=== PATIENT | female | born 1990 | race Caucasian/White ===

== ENCOUNTER → 2020-04-16 11:48 | Outpatient (CLI) | payer OTHER, SELFPAY ==
[2020-04-19 07:28] LABS: Neisseria gonorrhoeae, NAA Negative (Negative)
== END ==
PROVIDERS: Visit Provider Obstetrics & Gynecology
DX: N89.8 Other specified noninflammatory disorders of vagina (principal)
CPT/HCPCS: 87491; 87591

== ENCOUNTER → 2021-03-18 12:16 | Outpatient (CLI) | payer OTHER, SELFPAY ==
[2021-03-18 12:50] LABS: D-Dimer 0.47 ug/mL (0.0-0.5)
[2021-03-18 13:48] LABS: T4 (Thyroxine) 9.5 ug/dl (5.53-11.0)
[2021-03-18 14:01] LABS: Thyroid Stimulating Hormone 2.43 uIU/mL (0.465-4.68)
== END ==
PROVIDERS: Visit Provider Internal Medicine Adolescent Medicine
DX: R07.89 Other chest pain (principal)
CPT/HCPCS: 36415; 84436; 84443; 85378

== ENCOUNTER 2021-03-19 19:36 | Emergency (ER) | payer OTHER, SELFPAY ==
[2021-03-19 19:37] VITALS: BP 145/89; PULSE 88; RESP 16; TEMP 37.1; O2SAT 100; BMI 23.6
--- NOTE | 2021-03-19 19:42 | ECG_ITS ---
APPROVED REPORT Exam: Resting ECG HR:79 bpm ECG Measurements Heart Rate 79 AXES WV 116 P 60 QRSd 94 QRS 72 QT 388 T 50 QTc 444 Conclusion Normal sinus rhythm Normal ECG Electronically signed by : Terell Hylton MD 03/20/2021 14:25:54
--- NOTE | 2021-03-19 19:59 | XR_ITS ---
PROCEDURE INFORMATION: Exam: XR Chest Exam date and time: 03/19/2021 7:59 PM Age: 30 years old Clinical indication: Sternal or substernal pain; Patient HX: Substernal chest pressure, patient had covid summer. ; Additional info: Chest pain TECHNIQUE: Imaging protocol: XR of the chest. Views: 2 views. COMPARISON: No relevant prior studies available. FINDINGS: Lungs: Unremarkable. No consolidation. Pleural spaces: Unremarkable. No pleural effusion. No pneumothorax. Heart/Mediastinum: Unremarkable. No cardiomegaly. Bones/joints: Mild scoliosis. IMPRESSION: No acute findings.
[2021-03-19 20:08] LABS: Basophils # 0.1 K/mm3 (0-0.2); Basophils % 1.2 % (0.1-2.0); Eosinophils # 0.5 K/mm3 (0.0-0.4); Eosinophils % 7.3 % (0.1-12.0); Hematocrit 41.7 % (37.0-47.0); Hemoglobin 13.4 g/dL (12.2-16.2); Lymphocytes # 2.6 K/mm3 (0.7-4.5); Lymphocytes % 37.8 % (10-50); Mean Corpuscular HGB Conc 32.2 g/dL (31.8-35.4); Mean Corpuscular Hemoglobin 30.4 pg (27.0-31.2); Mean Corpuscular Volume 94.4 fl (81-99); Mean Platelet Volume 8.7 fl (7.4-10.4); Monocytes # 0.3 K/mm3 (0.1-1.0); Monocytes % 4.6 % (1.7-9.3); Neutrophils # 3.3 K/mm3 (1.8-7.8); Neutrophils % 49.2 % (37.0-80.0); Platelet Count 282 K/mm3 (142-424); Red Blood Count 4.42 M/mm3 (4.20-5.40); Red Cell Distribution Width 13.7 % (11.5-17.5); White Blood Count 6.8 K/mm3 (4.8-10.8)
[2021-03-19 20:17] LABS: HCG Qualitative, Serum Negative (Negative)
[2021-03-19 20:21] LABS: Alanine Aminotransferase 14 U/L (12-78); Albumin Level 5.1 g/dl (3.5-5.0); Alkaline Phosphatase 54 U/L (38-126); Amylase 94 U/L (30-110); Anion Gap 14.5 mEq/L (5-15); Aspartate Amino Transferase 24 U/L (14-36); Bilirubin,Direct 0.3 mg/dl (0.0-0.4); Bilirubin,Total 0.3 mg/dl (0.2-1.3); Blood Urea Nitrogen 19 mg/dl (7-17); Calcium 9.9 mg/dl (8.4-10.2); Carbon Dioxide 27 mmol/L (22.0-30.0); Chloride 104 mmol/L (98-107); Creatinine Clearance Estimated 127 mL/min (50-200); Estimated Glomerular Filt Rate 98 ml/min (>60); GFR (African American) 119 ML/MIN (>60); Glucose 101 mg/dl (74-100); Lipase 92 U/L (23-300); Potassium 4.5 mmoL/L (3.5-5.1); Sodium 141 mmol/L (136-145); Total Protein,Serum 8.4 g/dl (6.3-8.2)
--- NOTE | 2021-03-19 20:21 | HMH.EDCP ---
ED Disposition Clinical Impression: Atypical chest pain Disposition: Home, Self-Care Condition on Discharge: Good Instructions: DI for Atypical Chest Pain Additional Instructions: see pcp for follow up Referrals: Terell Hylton MD [Primary Care Provider] - - Critical Care Critical Care Time: No Attestation: On 03/19/21, the high probability of a clinically significant, sudden or life threatening deterioration of the following system(s) required my full and direct attention, intervention and personal management. The time I documented below is in addition to time spent performing reported procedures but includes the following listed in this critical care notation. Medical Decision Making - Medical Records Medical records reviewed: Yes: I reviewed the patient's medical records. - Reji Inquiry Pt receiving controlled substance: No Vital Signs: 03/19/21 19:37 Temperature 98.7 F Temperature Source Oral Pulse Rate [Left] 88 Respiratory Rate 16 Blood Pressure [Right Arm] 145/89 H Blood Pressure Mean [Right Arm] 107 02 Sat by Pulse Oximetry 100 Oxygen Delivery Method Room Air - Lab Data Lab results reviewed: Yes: I reviewed the patient's lab results. Lab Results 03/19/21 19:40: WBC 6.8, RBC 4.42, Hgb 13.4, Hct 41.7, MCV 94.4, MCH 30.4, MCHC 32.2, RDW 13.7, Plt Count 282, MPV 8.7, Neut % (Auto) 49.2, Lymph % (Auto) 37.8, [place] % (Auto) 4.6, Eos % (Auto) 7.3, Baso % (Auto) 1.2, Neut # (Auto) 3.3, Lymph # (Auto) 2.6, [place] # (Auto) 0.3, Eos # (Auto) 0.5 H, Baso # (Auto) 0.1, ESR 7 03/19/21 19:40: Sodium 141, Potassium 4.5, Chloride 104, Carbon Dioxide 27, Anion Gap 14.5, BUN 19 H, Creatinine 0.70, Estimated Creat Clear 127, Estimated GFR 98, Est GFR ( Amer) 119, Glucose 101 H, Calcium 9.9, Total Bilirubin 0.3, Direct Bilirubin 0.3, Conjugated Bilirubin 0.0, Indirect Bilirubin 0.0, Unconjugated Bilirubin 0.0, AST 24, ALT 14, Alkaline Phosphatase 54, Troponin I < 0.01, C-Reactive Protein < 0.3, Total Protein 8.4 H, Albumin 5.1 H, Amylase 94, Lipase 92, Procalcitonin 0.032 03/19/21 19:40: Serum HCG, Qual Negative Result diagrams: 03/19/21 19:40 03/19/21 19:40 Orders (Tests/Meds): ED MEDICATIONS Generic Name Dose Route Start Last Admin Trade Name Freq PRN Reason Stop Dose Admin Sodium Chloride 1,000 mls @ 999 mls/hr 03/19/21 20:15 03/19/21 20:18 Sod Chlor 0.9% 1000ml Bag IV 03/19/21 21:15 999 mls/hr .Q1H1M JASBIR Administration Discontinued Medications Generic Name Dose Route Start Last Admin Trade Name Freq PRN Reason Stop Dose Admin Aspirin 324 mg 03/19/21 20:03 03/19/21 20:07 Aspirin 81mg Chewable Tablet PO 03/19/21 20:04 324 mg ONCE ONE Administration Famotidine 20 mg 03/19/21 20:13 03/19/21 20:18 Famotidine 20mg/2ml Vial IV 03/19/21 20:14 20 mg ONCE ONE Administration Ketorolac Tromethamine 30 mg 03/19/21 21:05 03/19/21 21:06 Ketorolac 30mg/Ml Vial IV 03/19/21 21:06 30 mg ONCE ONE Administration Metoclopramide HCl 10 mg 03/19/21 20:13 03/19/21 20:18 Metoclopramide Hcl 10mg/2ml Vial IVP 03/19/21 20:14 10 mg ONCE ONE Administration ORDERS Category Date Time Status Troponin I Q3H Lab 03/19/21 23:15 Ordered Troponin I Q3H Lab 03/20/21 02:15 Ordered - Radiology Data #1 Image(s): Chest Image Reviewed: Yes I reviewed the patient's radiology image, Yes I have reviewed radiologist's interpretation Preliminary Findings: Normal/NAD - ECG Data Tracing #1 Normal Sinus Rhythm: Yes Ischemic changes: non-specific ST-T wave changes Medical Decision Narrative: stable exam and labs and will f/u as op Chest Pain HPI - General Chief Complaint: Chest Pain Stated Complaint: chest pain Time Seen by Provider: 03/19/21 20:00 Mode of Arrival: Ambulatory Source of Information: Patient, Medical Record Limitations: No Limitations Description of Symptoms (Recalled from ER Triage Doc. by RN): chest pressure - Histor
[2021-03-19 20:40] LABS: Procalcitonin 0.032 ng/mL (0.0-2.0)
[2021-03-19 20:41] LABS: Erythrocyte Sedimentation Rate 7 mm/hr (0-20)
[2021-03-19 20:51] LABS: C-Reactive Protein < 0.3 mg/L (0-4); Troponin I < 0.01 ng/ml (0.00-0.034)
[2021-03-19 21:21] VITALS: BP 97/57; PULSE 78; RESP 16; TEMP 37.1
== END 2021-03-19 21:31 | disposition home or self-care (01) ==
PROVIDERS: Emergency Provider Emergency Medicine; PCP Internal Medicine Adolescent Medicine
DX: R07.89 Other chest pain (principal); R10.13 Epigastric pain; Z88.2 Allergy status to sulfonamides
CPT/HCPCS: 71046; 80048; 80076; 82150; 83690; 84145; 84484; 84703; 85025; 85651; 86140; 93005; 99283

== ENCOUNTER → 2021-03-27 10:01 | Outpatient (CLI) | payer OTHER, SELFPAY ==
--- NOTE | 2021-03-27 | CA_ITS ---
APPROVED REPORT Exam: Exercise Treadmill Technologist: Ashley Wan, Ht: 5 ft 7 in Wt: 155 lbs BSA: 1.81 m2 HR: 73 bpm BP: 121/80 mmHg Medical History Medications: Omeprazole,,,,, WELLBUTRIN,,,,, Regine,,,,, Stress Test Details Test: Ab HR Resting HR: 109 bpm Max Heart Rate (APMHR): 190.327440 bpm Max HR Achieved: 171 bpm Target HR (85% APMHR): 161.374044 bpm % of APMHR: 90.00 Recovery HR: 102 bpm BP Resting BP: 134/79 mmHg Max BP: 179/88 mmHg Recovery BP: 135.0/71.0 mmHg ECG Clinical Reason for Termination: Dyspnea Exercise duration: 12:01 min Highest Stage Achieved: Exercise capacity: 12.8 METs Stress ECG Conclusion Walked 12:00 Minute Max HR: 171 % of PM: 105 MET's: 12.8 Test stopped due to: SOA Symptoms: No CP Arrhythmias/Ectopy: None ST-T Changes: <1.5mm ST Segment changes Conclusion: Negative stress. See Echo report. Test Summary REST . . . . . . . Sitting REST . . . . . . . Standing REST 08:49 0.0 1.2 109 . 134/ 79 . . Stage 1 01:00 10.0 1.7 122 . . . . Stage 1 02:00 10.0 1.7 128 . . . . Stage 1 03:00 10.0 1.7 124 . . . . Stage 2 01:00 12.0 2.5 126 . . . . Stage 2 02:00 12.0 2.5 138 . . . . Stage 2 03:00 12.0 2.5 136 . 170/ 90 . . Stage 3 01:00 14.0 3.4 154 . . . . Stage 3 02:00 14.0 3.4 156 . . . . Stage 3 03:00 14.0 3.4 156 . 179/ 88 . . Stage 4 01:00 16.0 4.2 168 . . . . Stage 4 02:00 16.0 4.2 169 . . . . Stage 4 03:00 16.0 4.2 171 . . . . Stage 5 00:01 18.0 5.0 171 . . . Stop exercise at 12:01 RECOVERY 01:00 0.0 0.0 136 . . . . RECOVERY 02:00 0.0 0.0 119 . . . . RECOVERY 03:00 0.0 0.0 112 . . . . RECOVERY 04:00 0.0 0.0 101 . 159/ 77 . . RECOVERY 05:00 0.0 0.0 102 . 159/ 77 . . RECOVERY 06:00 0.0 0.0 115 . 135/ 71 . . RECOVERY 07:00 0.0 0.0 106 . 135/ 71 . . RECOVERY 07:45 0.0 0.0 0 . 135/ 71 . . Electronically signed by : Seng Hendrix MD 03/27/2021 13:11:39
--- NOTE | 2021-03-27 10:10 | CA_ITS ---
APPROVED REPORT EXAM: Limited 2D Echocardiogram Seat Installer: Ginger Castillo RVT Ht: 5 ft 7 in Wt: 155lbs BSA: 1.81 BP: 123/67 mmHg Indications: PALPS,HX COVID,CHEST PRESSURE Stress Test Details HR Max Heart Rate (APMHR): 190.043020 bpm Target HR (85% APMHR): 161.369045 bpm BP ECG Conclusion 1. The patient exercised on Ab protocol and achieved 12.8 mets of workload on treadmill the blood pressure response to exercise was adequate, there is no exercise-induced chest discomfort. The EKG was negative for ischemia with exercise. 2. No echocardiographic evidence of segmental wall motion abnormality with exercise to suggest underlying ischemic heart disease. Normal left ventricular systolic function. 3. Normal exercise stress echo. Electronically signed by : Seng Hendrix MD 03/27/2021 13:15:36
== END ==
PROVIDERS: PCP Internal Medicine Adolescent Medicine; Visit Provider Internal Medicine Adolescent Medicine
DX: R07.9 Chest pain, unspecified (principal); R00.2 Palpitations
CPT/HCPCS: 93017; 93350

== ENCOUNTER → 2021-05-19 14:26 | Outpatient (CLI) | payer OTHER, SELFPAY ==
[2021-05-19 14:46] LABS: Coronavirus 19, PCR Not Detected (NotDetected); Influenza A, PCR Not Detected (NotDetected); Influenza B, PCR Not Detected (NotDetected)
== END ==
PROVIDERS: PCP Internal Medicine Adolescent Medicine; Visit Provider Nurse Practitioner
DX: Z20.822 Contact with and (suspected) exposure to COVID-19 (principal)
CPT/HCPCS: C9803; U0003; U0005

== ENCOUNTER 2021-06-17 17:28 | Emergency (ER) | payer OTHER, SELFPAY ==
[2021-06-17 19:00] VITALS: BP 112/69; PULSE 73; RESP 18; TEMP 37.9; O2SAT 100; BMI 24.3
[2021-06-17 19:18] LABS: Adenovirus,PCR Not Detected (NotDetected); Bordetella Pertussis Not Detected (NotDetected); Chlamydophila Pneumoniae, PCR Not Detected (NotDetected); Coronavirus 19, PCR Not Detected (NotDetected); Coronavirus 229E Not Detected (NotDetected); Coronavirus NL63 Not Detected (NotDetected); Coronavirus OC43 Not Detected (NotDetected); Coronovirus HKU1,PCR Not Detected (NotDetected); Human Metapneumovirus Not Detected (NotDetected); Influenza A, PCR Not Detected (NotDetected); Influenza AH1, 2009 Not Detected (NotDetected); Influenza AH1, PCR Not Detected (NotDetected); Influenza AH3,PCR Not Detected (NotDetected); Influenza B, PCR Not Detected (NotDetected); Mycoplasma Pneumoniae, PCR Not Detected (NotDetected); Parainfluenza 1, PCR Not Detected (NotDetected); Parainfluenza 2, PCR Not Detected (NotDetected); Parainfluenza 3, PCR Not Detected (NotDetected); Parainfluenza 4, PCR Not Detected (NotDetected); Respiratory Syncytial Virus Not Detected (NotDetected); Rhinovirus/Enterovirus Not Detected (NotDetected)
--- NOTE | 2021-06-17 19:34 | HMH.EDUTC ---
[facility] [place] Clinical Impression: Viral syndrome Disposition: Home, Self-Care Condition on Discharge: Good Instructions: DI for Fever (Symptom) -- Adult, DI for COVID-19 (Suspected or Confirmed ), Preventing the Spread of Coronavirus Discharge Instructions Additional Instructions: *Monitor Temp, Over the counter Motrin or Tylenol as directed/as needed Tylenol every 4 hours and Motrin every 6 hours (as long as your family doctor has told you that you can take it) for fever or pain. and straight to ER if unable to lower temp less than 101.0 after medication given *Warm salt water gargles may help to soothe the throat *Throat Lozenges *Warm fluids like tea with honey may help to soothe the throat *Sleep elevated *Humidifier/Vaporizer Follow up IMMEDIATELY for new or worsening symptoms or no Noticeable improvement over the next 48-72 hours. 911 for difficulty breathing or swallowing You were tested for today for COVID19 your test result should be back in the next 24-48 hours, you may check your results on the [facility] portal if you have trouble logging on you may call support to help you Make sure to take your Vitamins Vit. C Vit D and Zinc if you can take them Referrals: Terell Hylton MD [Primary Care Provider] - As needed Forms: Work/School Release Medical Decision Making - Reji Inquiry Pt receiving controlled substance: No Reji was queried for this patient: No Vital Signs: 06/17/21 19:00 Temperature 100.2 F H Temperature Source Temporal Artery Scan Pulse Rate [Right Brachial] 73 Respiratory Rate 18 Blood Pressure [Right Arm] 112/69 Blood Pressure Mean [Right Arm] 83 Blood Pressure Source [Right Arm] Automatic Cuff Blood Pressure Position [Right Arm] Sitting 02 Sat by Pulse Oximetry 100 Oxygen Delivery Method Room Air Orders (Tests/Meds): ORDERS Category Date Time Status Full Resp Panel w/COVID ([facility]) Routine Lab 06/17/21 19:05 [place] [facility] [place] - General Stated complaint: covid test Time Seen by Provider: 06/17/21 19:34 Mode of Arrival: Ambulatory Source of Information: Patient Limitations: No Limitations Description of Symptoms (Recalled from Triage Doc. by RN): PATIENT C/O BODY ACHES AND NOT FEELING WELL, REQUESTING COVID TEST HEENT Symptoms (Recalled from RN notes): No Resp Symptoms (Recalled from RN notes): No Skin Symptoms (Recalled from RN notes): No MS Symptoms (Recalled from RN notes): No Functional Status (Recalled from RN notes): WNL - History of Present Illness Provider Complaint: Patient state that she has been having body aches, chills, and over all not feeling well States that she has been around people with covid and wanted to get tested State that daughter is having similar symptoms - Related Data Home Medications Medication Instructions Recorded Confirmed bupropion HCl 150 mg 24 hr tablet, 150 mg PO DAILY 04/16/20 06/17/21 extended release Allergies Allergy/AdvReac Type Severity Reaction Status Date / Time Iodinated Contrast Media Allergy Verified 06/17/21 19:28 nitrofurantoin Allergy Verified 06/17/21 19:28 Sulfa (Sulfonamide Allergy Verified 06/17/21 19:28 Antibiotics) - Worker's Comp Is this a Worker's Comp case?: No [facility] History - Hepatitis A Screen Drug use history?: No High risk sexual behaviors?: No History of sexually transmitted infection?: No Currently employed?: No Childcare worker?: No Do you have indoor plumbing?: Yes Do you have electricity?: Yes Attestation statement:: This patient has been screened for Hepatitis A risk factors. I have reviewed the patient's past medical history: Yes Laterality Cases: Bilateral: Tonsillectomy Amputation: No Fractures: No - Social History Smoking Status: Never smoker Alcohol Intake: never Occupational Status: employed Family Hx:: No significant family history ROS Obtained: Yes All systems reviewed & no additional complaints, Yes Systems reviewed as appropria
[2021-06-17 19:48] VITALS: BP 112/69; PULSE 73; RESP 18; TEMP 37.9; O2SAT 100
== END 2021-06-17 19:50 | disposition home or self-care (01) ==
PROVIDERS: Emergency Provider Nurse Practitioner; PCP Internal Medicine Adolescent Medicine
DX: B34.9 Viral infection, unspecified (principal)
CPT/HCPCS: 87581; 87632; 87798; 99202; C9803; G0463; U0003; U0005

== ENCOUNTER → 2021-06-30 09:04 | Outpatient (CLI) | payer OTHER, SELFPAY ==
--- NOTE | 2021-06-30 09:10 | US_ITS ---
FINAL REPORT CLINICAL HISTORY: epigastric pain; nausea FINDINGS: Sonographic images of the abdomen were obtained. The liver has an unremarkable appearance with normal echogenicity. There is minimal sludge in the gallbladder without evidence of gallstones. There is no evidence of biliary ductal dilatation. The common hepatic duct measures 1 mm, which is within normal limits. Limited images of the pancreas are unremarkable. The spleen size is normal. The right kidney measures 10.8 cm in length. The left kidney measures 12.1 cm in length. There is normal renal echogenicity. There is no evidence of hydronephrosis. The aorta has an unremarkable appearance. Limited images of the inferior vena cava are unremarkable. IMPRESSION: Minimal sludge in the gallbladder. Reviewed, Interpreted and Dictated by Robson Kan III, MD Transcribed by Adelina Wolef Authenticated by Robson Kan III, MD on 06/30/2021 11:32:[address] [facility]
== END ==
PROVIDERS: PCP Internal Medicine Adolescent Medicine; Visit Provider Internal Medicine Adolescent Medicine
DX: R10.84 Generalized abdominal pain (principal)
CPT/HCPCS: 76700

== ENCOUNTER → 2021-07-27 10:22 | Outpatient (CLI) | payer OTHER, SELFPAY ==
--- NOTE | 2021-07-27 10:26 | NM_ITS ---
FINAL REPORT TECHNIQUE: The patient was injected with 4 mCi of technetium 99m Choletec and subsequently 2.4 mcg of Kinevac. Images of the abdomen were obtained for one hour. CLINICAL HISTORY: ABD PAIN 10:40AM 8.76 MCI TC CHOLETEC INJ INTO RT ANT ENSURE NO PAIN AFTER DRINKING ENSURE FINDINGS: The gallbladder is seen by 10 minutes. Bile ducts are seen by 20 minutes. Bowel is seen by 45 minutes. Gallbladder ejection fraction is 14% which is abnormally low but nonspecific. IMPRESSION: 14% ejection fraction, abnormally low, nonspecific. Reviewed, Interpreted and Dictated by Robson Kan III, MD Transcribed by Maria G Villalobos Authenticated by Robson Kan III, MD on 07/27/2021 02:54:[address] [facility]
--- NOTE | 2021-07-27 10:48 | HMH.ITSHM ---
Current Home Medications as stated by this patient Min Lacy or bilingual inside sales representative. []WELLBUTRIN OMEPRAZOLE
== END ==
PROVIDERS: PCP Internal Medicine Adolescent Medicine; Visit Provider Internal Medicine Adolescent Medicine
DX: R10.84 Generalized abdominal pain (principal)
CPT/HCPCS: 78226; A9537

== ENCOUNTER → 2023-05-03 09:30 | Outpatient (CLI) | payer BC, SELFPAY ==
[2023-05-03 11:12] LABS: Alanine Aminotransferase 16 U/L (12-78); Albumin Level 4.1 g/dl (3.5-5.0); Albumin/Globulin Ratio 1.6 (1.1-1.8); Alkaline Phosphatase 40 U/L (38-126); Anion Gap 9.1 mEq/L (5-15); Aspartate Amino Transferase 22 U/L (14-36); Bilirubin,Total 0.6 mg/dl (0.2-1.3); Blood Urea Nitrogen 19 mg/dl (7-17); Calcium 8.3 mg/dl (8.4-10.2); Carbon Dioxide 28 mmol/L (22.0-30.0); Chloride 103 mmol/L (98-107); Chol/HDL Ratio 1.6 (1-3.5); Cholesterol 150 mg/dl (140-200); Estimated Glomerular Filt Rate 72 ml/min (>60); GFR (African American) 87 ML/MIN (>60); Globulin 2.5 g/dL (1.3-3.2); Glucose 87 mg/dl (74-100); HDL Cholesterol 94 mg/dl (40-60); Potassium 4.1 mmoL/L (3.5-5.1); Sodium 136 mmol/L (136-145); Total Protein,Serum 6.6 g/dl (6.3-8.2); Triglycerides 51 mg/dl (30-150); VLDL Cholesterol 10 mg/dL (0-40)
== END ==
PROVIDERS: PCP Internal Medicine Adolescent Medicine; Visit Provider Nurse Practitioner Family
DX: Z00.00 Encounter for general adult medical examination without abnormal findings (principal)
CPT/HCPCS: 36415; 80053; 80061

== ENCOUNTER 2024-08-22 21:20 | Emergency (ER) | payer OTHER, SELFPAY ==
[2024-08-22 21:37] VITALS: BP 135/93; PULSE 68; RESP 18; TEMP 36.2; O2SAT 100; BMI 23.5
[2024-08-22 21:51] LABS: Microscopic, Urine URINE MICROSCOPIC (MICROSCOPIC)
[2024-08-22 21:57] LABS: Appearance,Urine CLEAR (Clear); Bilirubin,Urine Negative (Negative); Blood, Urine Negative (Negative); Color,Urine YELLOW (Yellow); Glucose,Urine (UA) Negative (Negative); Ketones,Urine Negative (Negative); Leukocyte Esterase,Urine Negative (Negative); Nitrate,Urine Negative (Negative); Protein,Urine Negative (Negative); Urobilinogen,Urine 0.2 EU/dl (0.2)
--- NOTE | 2024-08-22 22:51 | ED_ITS ---
Discharge Plan Disposition Patient Disposition: Home, Self-Care Prescriptions Prescriptions: No Action bupropion HCl 300 mg tablet extended release 24 hr 300 mg PO DAILY ParaGard T 380A 380 square mm intrauterine device 1 device intrauterine Referrals Follow up/Referrals: Terell Hylton MD [Primary Care Provider] - See instructions Activity Restrictions/Add. Instructions Additional Instructions/Restrictions: Please follow-up with your primary care provider and FINANCIAL MANAGEMENT ANALYST. Please return to the emergency department if you develop any new or worsening symptoms or become concerned for your health. Clinical Impressions Clinical Impression: Abdominal pain, Dysuria Instructions Patient Instructions: DI for Urinary Tract Infection (UTI), DI for Urinary Tract Infection in Children Print Language Print Language: Bengali Discharge ED Provider: Abdias Young General Adult HPI <Pradeep Pham MD - Last Filed: 08/22/24 23:06> General Chief complaint: Urogenital-Female Stated complaint: abdominal pain Time Seen by Provider: 08/22/24 21:50 Mode of Arrival: Ambulatory Source of Information: Patient Description of Symptoms (Recalled from ER Triage Doc. by RN): Pt presents with c/o Urinary urgency, pressure, and pain with urination History of Present Illness HPI narrative: Patient is a 34-year-old female with past medical history of previous kidney stone who presents emergency department for evaluation of pain with urination, intermittent spasming pressure in her suprapubic region. Patient has been treated with multiple rounds of antibiotics over the last month or so for urinary tract infection that grew out E. coli and Klebsiella. She has failed Macrobid and Augmentin. She is concerned that she has a possible kidney stone or bladder as she has significant pressure. She has pain nearing the end of her void as well as hematuria. No back pain no flank pain no chest pain. Last menstrual period approximately 2 weeks ago. No vaginal bleeding or discharge no high risk sexual encounters. No reported vulvar lesions. No other acute complaints at this time. Please note that above description of symptoms, in this electronic medical record under categorization of recalled from ER triage doctor by RN are reflective of an initial nursing assessment, however, is not reflective of my full history and physical exam that was personally taken and clarified. Consequentially, this preceding description of symptoms, which may include the patient's categorized chief complaint in the EMR, do not reflect my personal clinical impression, and the ultimate description of history of present illness and patient stated complaints should be deferred to this section of the note. Unless stated otherwise or congruent with this section of the note, additional signs, symptoms, or incongruence should be interpreted as inaccurate with my clinical impression. Related Data Home Medications ?Medication ?Instructions ?Recorded ?Confirmed bupropion HCl 300 mg 24 hr tablet, 300 mg PO DAILY 08/18/22 08/07/24 extended release copper 380 square mm intrauterine 1 device intrauterine 07/06/24 08/07/24 device (ParaGard T 380A) Allergies Allergy/AdvReac Type Severity Reaction Status Date / Time Iodinated Contrast Media Allergy Verified 08/07/24 14:20 nitrofurantoin Allergy Verified 08/07/24 14:20 Sulfa (Sulfonamide Allergy Verified 08/07/24 14:20 Antibiotics) [facility] <Pradeep Pham MD - Last Filed: 08/22/24 23:06> [facility] Disclaimer: The information contained in this section may have been updated after the patient was seen, as this information can be updated by other users. Medical History Suprapubic abdominal burning sensation Depression Viral syndrome Atypical chest pain Surgical History History of History of tonsillectomy Family History Mother Thyroid disorder Social History Smoking Status: Former smoker alcohol intake: current alcohol intake frequency: holidays/special occasions only substance use type: denies use current occupational status: employed Travel in the last 8 weeks: None Have you lived/traveled outside [place] in past 30 days?: No Contact w/someone who lives/traveled outside US past 30 days?: No Exposure to someone with infectious disease in past 14 days?: No Do you have a fever (greater than 100.4 F or 38 C)?: No Have you tested positive for COVID-19: No Exposed to someone with COVID-19 in past 14 days?: No Do you have a sore throat?: No Do you have a cough?: No Do you have any weakness?: No Do you have any diarrhea?: No Are you experiencing any unusual bleeding?: No Do you have any muscle aches/pain?: No Do you have any abdominal pain?: Yes Are you experiencing loss of taste or smell?: No Other Medical History Have you received the Flu Vaccine for this season: Yes Have you received the Pneumonia Vaccine: No <Pradeep Pham MD - Last Filed: 08/22/24 23:06> ROS Obtained: Yes Systems reviewed as appropriate & no additional complaints except as documented Physical Exam <Pradeep Pham MD - Last Filed: 08/22/24 23:06> General General appearance: alert and in no apparent distress Head Head exam: atraumatic and normocephalic Eye Eye exam: Present PERRL and EOMI ENT ENT exam: Present mucous membranes moist Neck Neck exam: Present normal inspection Chest Chest inspection: Present normal inspection and symmetric chest wall rise Respiratory Respiratory exam: Present normal lung sounds bilaterally; Absent respiratory distress Cardiovascular Cardiovascular exam: Present regular rate and normal rhythm Abdominal Exam Abdominal exam: Present soft; Absent tenderness, guarding or rebound Extremities Exam Extremities exam: Present normal inspection Neurological Exam Neurological exam: Present alert Psychiatric Psychiatric exam: Present normal affect Skin Skin exam: Present warm and dry Medical Decision Making <Pradeep Pham MD - Last Filed: 08/22/24 23:06> Medical Records Screening: Per USPSTF and CDC recommendations, given the prevalence of disease in our region, it is our hospital?s policy to screen for HIV and viral Hepatitis for all patients aged 18 and over and those with ongoing risk factors. Reji Inquiry Pt receiving controlled substance: No Vital Signs: 08/22/24 21:37 Temperature 97.1 F L Temperature Source Oral Pulse Rate [Right] 68 Respiratory Rate 18 Blood Pressure [Right Arm] 135/93 H Blood Pressure Mean [Right Arm] 107 Blood Pressure Source [Right Arm] Automatic Cuff Blood Pressure Position [Right Arm] Sitting 02 Sat by Pulse Oximetry 100 Oxygen Delivery Method Room Air Lab Data Lab Results 08/22/24 21:47: Urine Color Yellow, Urine Appearance Clear, Urine pH 6.0, Ur Specific [place] 1.010, Urine Protein Negative, Urine Glucose (UA) Negative, Urine Ketones Negative, Urine Blood Negative, Urine Nitrate Negative, Urine Bilirubin Negative, Urine Urobilinogen 0.2, Ur Leukocyte Esterase Negative, Urine RBC None, Urine WBC None, Ur Squamous Epith Cells None, Urine Bacteria None, Urine HCG, Qual Negative 08/22/24 23:00: WBC 5.5, RBC 4.06 L, Hgb 12.3, Hct 37.0, MCV 91.1, MCH 30.3, MCHC 33.2, RDW 13.6, Plt Count 239, MPV 10.1, Neut % (Auto) 54.9, Lymph % (Auto) 34.2, [place] % (Auto) 8.2, Eos % (Auto) 1.8, Baso % (Auto) 0.7, Neut # (Auto) 3.0, Lymph # (Auto) 1.9, [place] # (Auto) 0.5, Eos # (Auto) 0.1, Baso # (Auto) 0.0, Sodium 136, Potassium 4.1, Chloride 103, BUN 19 H, Creatinine 0.80, Estimated Creat Clear 106, Estimated GFR 82, Est GFR ( Amer) 99, Albumin 4.2 08/22/24 23:00 08/22/24 23:00 Orders (Tests/Meds): ED MEDICATIONS Discontinued Medications Generic Name Dose Route Start Last Admin Trade Name Freq PRN Reason Stop Dose Admin Acetaminophen 1,000 mg 08/22/24 22:56 08/22/24 23:08 Acetaminophen 500mg Tab PO 08/22/24 22:57 1,000 mg ONCE ONE Administration Ketorolac Tromethamine 30 mg 08/22/24 22:56 08/22/24 23:08 Ketorolac 30mg/Ml Vial IV 08/22/24 22:57 30 mg ONCE ONE Administration ORDERS Category Date Time Status CT abdomen pelvis wo con Stat Cat Scan 08/22/24 22:52 Completed CBC w/Auto Diff [Complete Blood Count Auto Diff] Stat Lab 08/22/24 23:00 Completed CMP [Comprehensive Metabolic Panel] Stat Lab 08/22/24 23:00 Results Urinalysis and Microscopic Stat Lab 08/22/24 21:47 Completed Urine , HCG Qual. Stat Lab 08/22/24 21:47 Completed Medical Decision Narrative: In summary patient is a 34-year-old female past medical history described above presents emergency department for evaluation of suprapubic abdominal pain in the setting of refractory UTI and hematuria. Patient is hemodynamically stable nontoxic-appearing upon arrival, afebrile. Differential diagnosis includes cystitis, ureteritis, interstitial cystitis, bladder outlet stone, among others. Workup will be conducted with hematologic labs, urinalysis, CT abdomen pelvis without IV contrast. Initial inventions include multimodal pain control with Tylenol and Toradol. Workup and repeat evaluation largely pending at time of transition of care to the oncoming physician, Dr. Young. <Abdias Young MD - Last Filed: 08/23/24 00:47> Vital Signs: 08/22/24 21:37 Temperature 97.1 F L Temperature Source Oral Pulse Rate [Right] 68 Respiratory Rate 18 Blood Pressure [Right Arm] 135/93 H Blood Pressure Mean [Right Arm] 107 Blood Pressure Source [Right Arm] Automatic Cuff Blood Pressure Position [Right Arm] Sitting 02 Sat by Pulse Oximetry 100 Oxygen Delivery Method Room Air Lab Data Lab Results 08/22/24 21:47: Urine Color Yellow, Urine Appearance Clear, Urine pH 6.0, Ur Specific [place] 1.010, Urine Protein Negative, Urine Glucose (UA) Negative, Urine Ketones Negative, Urine Blood Negative, Urine Nitrate Negative, Urine Bilirubin Negative, Urine Urobilinogen 0.2, Ur Leukocyte Esterase Negative, Urine RBC None, Urine WBC None, Ur Squamous Epith Cells None, Urine Bacteria None, Urine HCG, Qual Negative 08/22/24 23:00: WBC 5.5, RBC 4.06 L, Hgb 12.3, Hct 37.0, MCV 91.1, MCH 30.3, MCHC 33.2, RDW 13.6, Plt Count 239, MPV 10.1, Neut % (Auto) 54.9, Lymph % (Auto) 34.2, [place] % (Auto) 8.2, Eos % (Auto) 1.8, Baso % (Auto) 0.7, Neut # (Auto) 3.0, Lymph # (Auto) 1.9, [place] # (Auto) 0.5, Eos # (Auto) 0.1, Baso # (Auto) 0.0, Sodium 136, Potassium 4.1, Chloride 103, BUN 19 H, Creatinine 0.80, Estimated Creat Clear 106, Estimated GFR 82, Est GFR ( Amer) 99, Albumin 4.2 Orders (Tests/Meds): ED MEDICATIONS Discontinued Medications Generic Name Dose Route Start Last Admin Trade Name Freq PRN Reason Stop Dose Admin Acetaminophen 1,000 mg 08/22/24 22:56 08/22/24 23:08 Acetaminophen 500mg Tab PO 08/22/24 22:57 1,000 mg ONCE ONE Administration Ketorolac Tromethamine 30 mg 08/22/24 22:56 08/22/24 23:08 Ketorolac 30mg/Ml Vial IV 08/22/24 22:57 30 mg ONCE ONE Administration ORDERS Category Date Time Status CT abdomen pelvis wo con Stat Cat Scan 08/22/24 22:52 Completed CBC w/Auto Diff [Complete Blood Count Auto Diff] Stat Lab 08/22/24 23:00 Completed CMP [Comprehensive Metabolic Panel] Stat Lab 08/22/24 23:00 Results Urinalysis and Microscopic Stat Lab 08/22/24 21:47 Completed Urine , HCG Qual. Stat Lab 08/22/24 21:47 Completed Medical Decision Narrative: In summary patient is a 34-year-old female past medical history described above presents emergency department for evaluation of suprapubic abdominal pain in the setting of refractory UTI and hematuria. Patient is hemodynamically stable nontoxic-appearing upon arrival, afebrile. Differential diagnosis includes cystitis, ureteritis, interstitial cystitis, bladder outlet stone, among others. Workup will be conducted with hematologic labs, urinalysis, CT abdomen pelvis without IV contrast. Initial inventions include multimodal pain control with Tylenol and Toradol. Workup and repeat evaluation largely pending at time of transition of care to the oncoming physician, Dr. Young. Hannah PLUMMER: I assumed care of the patient at the time of handoff from the prior provider. On reassessment patient remains hemodynamically stable. Laboratory workup shows no significant leukocytosis, no significant renal dysfunction, urinalysis is completely clean. CT imaging shows no significant abnormality such as obstructing ureteral stone, pelvic mass etc. I had extensive discussion with patient regarding her presentation, history and workup. She is discharged in stable condition with return precautions. Critical Care <Pradeep Pham MD - Last Filed: 08/22/24 23:06> Critical Care Time Critical Care Time: No
--- NOTE | 2024-08-22 22:52 | CT_ITS ---
PROCEDURE INFORMATION: Exam: CT Abdomen And Pelvis Without Contrast Exam date and time: 08/22/2024 11:33 PM Age: 34 years old Clinical indication: Abdominal pain; Additional info: Chronic dysuria, suprapubic pain, HX stones TECHNIQUE: Imaging protocol: Computed tomography of the abdomen and pelvis without contrast. Radiation optimization: All CT scans at this facility use at least one of these dose optimization techniques: automated exposure control; mA and/or kV adjustment per patient size (includes targeted exams where dose is matched to clinical indication); or iterative reconstruction. COMPARISON: [facility] 07/27/2021 11:46 AM FINDINGS: Liver: Normal. No mass. Gallbladder and biliary ducts: Normal. No calcified stones. No ductal dilation. Pancreas: Normal. No ductal dilation. Spleen: Normal. No splenomegaly. Adrenal glands: Normal. No mass. Kidneys and ureters: 0.2 cm nonobstructive left renal calculus. No obvious radiopaque ureteral calculus identified. Stomach and bowel: Large nonobstructive colonic stool burden. Appendix: No evidence of appendicitis. Intraperitoneal space: Unremarkable. No free air. No significant fluid collection. Vasculature: Unremarkable. No abdominal aortic aneurysm. Lymph nodes: [place] retroperitoneal/mesenteric lymph nodes without lymphadenopathy. Urinary bladder: Unremarkable as visualized. Reproductive: Intrauterine device projected over mid uterus. Bones/joints: Unremarkable. No acute fracture. Soft tissues: Unremarkable. IMPRESSION: 1. Nonobstructive left renal calculus. 2. Large colonic stool burden. 3. Reactive lymph nodes.
[2024-08-22] MEDS: KETOROLAC 30MG/ML VIAL 30 MG IV (23:08)
[2024-08-22] MEDS: ACETAMINOPHEN 500MG TAB 1000 MG PO (23:08)
[2024-08-22 23:10] LABS: Basophils % 0.7 % (0.1-2.0); Eosinophils # 0.1 K/mm3 (0.0-0.4); Eosinophils % 1.8 % (0.1-12.0); Hemoglobin 12.3 g/dL (12.2-16.2); Lymphocytes # 1.9 K/mm3 (0.7-4.5); Lymphocytes % 34.2 % (10-50); Mean Corpuscular HGB Conc 33.2 g/dL (31.8-35.4); Mean Corpuscular Hemoglobin 30.3 pg (27.0-31.2); Mean Corpuscular Volume 91.1 fl (81-99); Mean Platelet Volume 10.1 fl (7.4-10.4); Monocytes # 0.5 K/mm3 (0.1-1.0); Monocytes % 8.2 % (1.7-9.3); Neutrophils % 54.9 % (37.0-80.0); Platelet Count 239 K/mm3 (142-424); Red Blood Count 4.06 M/mm3 (4.20-5.40); Red Cell Distribution Width 13.6 % (11.5-17.5); White Blood Count 5.5 K/mm3 (4.8-10.8)
[2024-08-22 23:19] LABS: Urine Pregnancy, HCG Qual. Negative (Negative)
[2024-08-22 23:29] LABS: Albumin Level 4.2 g/dl (3.5-5.0); Chloride 103 mmol/L (98-107); Sodium 136 mmol/L (136-145)
[2024-08-22 23:30] LABS: Potassium 4.1 mmoL/L (3.5-5.1)
[2024-08-22 23:32] LABS: Alanine Aminotransferase 15 U/L (12-78); Albumin/Globulin Ratio 1.6 (1.1-1.8); Alkaline Phosphatase 53 U/L (38-126); Anion Gap 5.1 mEq/L (5-15); Aspartate Amino Transferase 21 U/L (14-36); Bilirubin,Total 0.5 mg/dl (0.2-1.3); Blood Urea Nitrogen 19 mg/dl (7-17); Carbon Dioxide 32 mmol/L (22.0-30.0); Creatinine Clearance Estimated 106 mL/min (50-200); Estimated Glomerular Filt Rate 82 ml/min (>60); GFR (African American) 99 ML/MIN (>60); Globulin 2.6 g/dL (1.3-3.2); Total Protein,Serum 6.8 g/dl (6.3-8.2)
[2024-08-22 23:33] LABS: Calcium 9.7 mg/dl (8.4-10.2); Glucose 86 mg/dl (74-100)
[2024-08-23 00:48] VITALS: BP 115/87; PULSE 85; RESP 20; TEMP 36.7; O2SAT 98
== END 2024-08-23 00:54 | disposition home or self-care (01) ==
PROVIDERS: Emergency Medicine; Emergency Provider Emergency Medicine; PCP Internal Medicine Adolescent Medicine
DX: R30.0 Dysuria (principal); R10.2 Pelvic and perineal pain; R30.9 Painful micturition, unspecified; R39.15 Urgency of urination; R31.9 Hematuria, unspecified
CPT/HCPCS: 74176; 80053; 81001; 81025; 85025; 96374; 99284; J1885

== ENCOUNTER 2024-09-10 14:00 | Outpatient (CLI) | payer OTHER, SELFPAY ==
[2024-09-10 15:24] LABS: Microscopic, Urine URINE MICROSCOPIC (MICROSCOPIC)
[2024-09-10 16:21] LABS: Appearance,Urine CLEAR (Clear); Bilirubin,Urine Negative (Negative); Blood, Urine Negative (Negative); Color,Urine YELLOW (Yellow); Glucose,Urine (UA) Negative (Negative); Ketones,Urine Negative (Negative); Leukocyte Esterase,Urine Negative (Negative); Nitrate,Urine Negative (Negative); PH,Urine 7.5 (5.0-8.5); Protein,Urine Negative (Negative); Specific Gravity, Urine 1.015 (1.005-1.030); Urobilinogen,Urine 0.2 EU/dl (0.2)
[2024-09-10 16:39] LABS: Amorphous Sediment,Urine 1+ /lpf; Bacteria,Urine Trace /lpf; Squamous Epithelial Cell,Urine Occasional #/hpf (0-5)
[2024-09-15 15:11] LABS: Atopobium vaginae Low - 0 Score (.); BVAB2 Low - 0 Score (.); Candida albicans NAA Negative (Negative); Candida glabrata Negative (Negative); Chlamydia Trachomatis NAA Negative (Negative); HSV 1 NAA Negative (Negative); HSV 2 NAA Negative (Negative); Megasphaera 1 Low - 0 Score (.); Neisseria gonorrhoeae NAA Negative (Negative); Trich vag NAA Negative (Negative)
== END 2024-09-10 23:59 | disposition home or self-care (01) ==
LOC: LAB.DROPOF 09-11 14:08
PROVIDERS: PCP Urology; Visit Provider Urology
DX: N89.8 Other specified noninflammatory disorders of vagina (principal); N39.0 Urinary tract infection, site not specified; R39.89 Other symptoms and signs involving the genitourinary system
CPT/HCPCS: 81001; 87086; 87491; 87529; 87591; 87661; 87798; 87801

== ENCOUNTER 2024-10-05 08:33 | Day surgery (SDC) | payer OTHER, SELFPAY ==
[2024-10-02 17:37] VITALS: BMI 23.5
[2024-10-05 08:49] VITALS: BP 116/56; PULSE 71; RESP 18; TEMP 37; O2SAT 100
[2024-10-05] MEDS: 0.9 % SODIUM CHLORIDE 500 ML 25 ML IV (09:10)
[2024-10-05] MEDS: BUPIVACAINE 0.5% 30ML VIAL 150 MG (09:10)
--- NOTE | 2024-10-05 09:14 | [facility].PROCNOTE ---
[facility] Procedure Note Date: 10/05/24 Time: 09:14 Procedure Note:: Chart review: 34-year-old patient who is troubled for 4 to 6 months with pelvic pain. She currently is not sexually active so does not have a history for dyspareunia as a result. She has pain in the urethral area. She has been using Estrace vaginal cream finger technique and feels that the pain has improved on that medication. However she says she is mostly regular with her menstrual periods at this. Is yet to come. According to the text using finger technique should not give any significant increase in estradiol blood levels. Pre-Op diagnosis: Pelvic pain Postoperative diagnosis: Pelvic pain; urethritis Operative note: The patient was brought to the cystoscopy suite. She is prepped and draped in the standard fashion. She underwent catheterization for urine culture and sensitivity. She then underwent flexible cystoscopy. Although difficult to diagnose it mostly I did not feel a periurethral mass consistent with a diverticulum. The bladder itself is [place] pink in color throughout without evidence of bladder stone tumor hemorrhage or infection. On distention there is no evidence of erythema or hemorrhage that would be consistent with IC. She is also failed the provocative test to help diagnose IC. The patient's urethra shows moderate urethral-itis. I suspect this is a great deal of the reason for her pelvic pain although her vagina is well estrogenized due to her young age I still feel that Estrace cream is the choice for urethritis. If concerns about the menstrual cycle continues will consult gynecology. I left 20 cc of 1/2% plain Marcaine in the bladder following cystoscopy as a rescue.
[2024-10-05 09:15] VITALS: BP 130/73; PULSE 69; RESP 16; TEMP 36.4; O2SAT 99
[2024-10-05 12:28] LABS: Microscopic,Cath URINE MICROSCOPIC (MICROSCOPIC)
[2024-10-05 12:48] LABS: Appearance,Urine/Cath CLEAR (Clear); Bilirubin,Cath Negative (Negative); Blood, Urine/Cath Negative (Negative); Color,Urine/Cath YELLOW (Yellow); Glucose,Urine/Cath (UA) Negative (Negative); Ketones,Urine/Cath Negative (Negative); Leukocyte Esterase,Cath Negative (Negative); Nitrate,Cath Negative (Negative); Protein,Urine/Cath Negative (Negative); Urobilinogen,Cath 0.2 EU/dl (0.2)
== END 2024-10-05 09:20 | disposition home or self-care (01) ==
PROVIDERS: PCP Internal Medicine Adolescent Medicine; Visit Provider Urology
PROC: 0TJB8ZZ Inspection of Bladder, Via Natural or Artificial Opening Endoscopic (ICD-10-PCS; CPT 52000; principal; 2024-10-05 09:30)
DX: R10.2 Pelvic and perineal pain (principal); N34.2 Other urethritis
CPT/HCPCS: 52000; 81001; C9144